=== PATIENT | female | born 1980 | race African-American/Black ===

== ENCOUNTER 2020-06-17 20:31 | Emergency (ER) | payer BC ==
[~2020-06-17] VITALS: Ht 149.9 cm; Wt 67.1 kg
[2020-06-17 20:33] VITALS: BP 124/82
[2020-06-17] MEDS ORDERED: NEURONTIN300 MG PO (20:40)
[2020-06-17] MEDS ORDERED: FLEXERIL PO (20:40)
[2020-06-17] MEDS ORDERED: CYMBALTA60 MG PO (20:40)
[2020-06-17] MEDS ORDERED: AMITRIPTYLINE H50 M3 PO (20:41)
[2020-06-17] MEDS ORDERED: NAPROSYN500 MG PO (21:08)
[2020-06-17] MEDS ORDERED: PERCOCET 5-3251 EACH PO (21:08)
== END 2020-06-17 21:45 | disposition home or self-care (01) ==
LOC: ER 20:31
DX: K05.30 Chronic periodontitis, unspecified (principal); M79.7 Fibromyalgia; Z88.0 Allergy status to penicillin; Z79.899 Other long term (current) drug therapy